=== PATIENT | male | born 1970 | race Caucasian/White ===

== ENCOUNTER 2019-10-14 18:22 | Emergency (ER) | payer SELFPAY ==
[~2019-10-14] VITALS: Ht 185.4 cm; Wt 91.3 kg
[2019-10-14 18:38] VITALS: BP 119/71
--- NOTE | 2019-10-14 18:38 | NUR ---
[email or web address]
[2019-10-14 19:12] LABS: BASOPHILS # (AUTO) 0.04 x10^3/uL (0-0.1); BASOPHILS % (AUTO) 1 % (0-1); EOSINOPHILS # (AUTO) 0.12 x10^3/uL (0-0.4); EOSINOPHILS % (AUTO) 2 % (1-7); LYMPHOCYTES # (AUTO) 2.16 x10^3/uL (1-3.4); LYMPHOCYTES % (AUTO) 27 % (22-44); MD NO; MEAN CORPUSCULAR HEMOGLOBIN 30.7 pg (27.5-34.5); MEAN CORPUSCULAR HGB CONC 32.5 g/dL (33.2-36.2); MEAN CORPUSCULAR VOLUME 94.4 fL (81-97); MEAN PLATELET VOLUME 8.5 fL (7.4-10.4); MONOCYTES # (AUTO) 0.34 x10^3/uL (0.2-0.8); MONOCYTES % (AUTO) 4 % (2-9); NEUTROPHILS # (AUTO) 5.28 x10^3/uL (1.8-6.8); NEUTROPHILS % (AUTO) 67 % (42-75); PLATELET COUNT 227 x10^3/uL (130-400); RED BLOOD COUNT 5.15 x10^6/uL (4.38-5.82); RED CELL DISTRIBUTION WIDTH 14.6 % (9.4-14.8)
[2019-10-14 19:20] LABS: ALBUMIN 3.5 g/dL (3.4-5.0); ANION GAP 5 mmol/L (5-15); CALCIUM 8.5 mg/dL (8.5-10.1); CHLORIDE 109 mmol/L (98-107); SALICYLATE LEVEL < 1.7 mg/dL (2.8-20.0)
[2019-10-14 19:22] LABS: ALANINE AMINOTRANSFERASE 31 U/L (12-78); ALKALINE PHOSPHATASE 65 U/L (45-117); BILIRUBIN,TOTAL 0.4 mg/dL (0.2-1.0); CREATININE 1.12 mg/dL (0.7-1.3); TOTAL PROTEIN 6.9 g/dL (6.4-8.2)
--- NOTE | 2019-10-14 19:33 | NUR ---
MARTA SAEZ, TO [facility].
--- NOTE | 2019-10-14 19:43 | NUR ---
PER EDPA KYLE, NO NEED FOR UTOX. LABS ALREADY DRAWN. AWAITING RESULTS.
--- NOTE | 2019-10-14 20:31 | NUR ---
PT TO EXIT WITH STAFF FROM [facility].
== END 2019-10-14 20:34 | disposition home or self-care (01) ==
LOC: ED 20:25
DX: F32.9 Major depressive disorder, single episode, unspecified (principal); F25.0 Schizoaffective disorder, bipolar type; F17.210 Nicotine dependence, cigarettes, uncomplicated
CPT/HCPCS: 36415; 80053; 80307; 85025; 99283

== ENCOUNTER 2020-01-07 23:28 | Emergency (ER) | payer MEDICAID ==
[~2020-01-07] VITALS: Ht 185.4 cm; Wt 94.2 kg
--- NOTE | 2020-01-08 00:03 | NUR ---
THIS IS A 49 YO MALE COMING IN FOR "I JUST DON'T FEEL GOOD" X2 DAYS. PATIENT IS VAGUE ABOUT SYMPTOMS, WHEN ASKED ABOUT COUGH/SOB PATIENT STATES "A LITTLE BIT", WHEN ASKED ABOUT BODY ACHES PATIENT STATES "NOT THAT BAD". PATIENT C/O "I'M JUST MATTHEW DEHYDRATED". DENIES N/V/D. LUNG SOUNDS CLEAR THROUGHOUT. C/O "LITTLE SORE THROAT". CHARBEL ZHONG IN ROOM AT THIS TIME, SWABS DONE. SPO2 AND BP MONITORING IN PLACE. ANDI MADERA. CALL LIGHT IN REACH
[2020-01-08] MEDS ORDERED: DEXAMETHASONE 4 MG TABLET ONE (00:12)
[2020-01-08] MEDS ORDERED: IBUPROFEN 600 MG TABLET ONE (00:12)
--- NOTE | 2020-01-08 00:19 | NUR ---
PATIENT MEDICATED PER EMAR, TOLERATED WELL.
[2020-01-08] MEDS ORDERED: DEXAMETHASONE 4 MG TABLET PO ONE (00:30)
[2020-01-08] MEDS ORDERED: IBUPROFEN 200 MG TABLET PO ONE (00:30)
[2020-01-08 00:56] VITALS: BP 159/88
== END 2020-01-08 01:04 | disposition home or self-care (01) ==
LOC: ED 01-08 00:53
DX: J00 Acute nasopharyngitis [common cold] (principal); R05 Cough; F10.10 Alcohol abuse, uncomplicated; F12.10 Cannabis abuse, uncomplicated; F17.210 Nicotine dependence, cigarettes, uncomplicated; F15.10 Other stimulant abuse, uncomplicated; Z72.9 Problem related to lifestyle, unspecified; Y90.9 Presence of alcohol in blood, level not specified
CPT/HCPCS: 69000; 87081; 87880; 99282; 99283; 99406